=== PATIENT | female | born 1985 | race Caucasian/White ===

== ENCOUNTER 2023-09-15 08:19 | Inpatient (IN) | payer BC ==
[~2023-09-15] VITALS: Ht 167.6 cm; Wt 90.0 kg
[~2023-09-15 08:19] MED LIST: CITA20TA28 PO; HYDR25TA5 PO; LISI20TA28 PO; PRAV20TA4 PO
[2023-09-15 09:06] LABS: BASOPHILS % (AUTO) 0.5 % (0-1); EOSINOPHILS # (AUTO) 0.1 X10'3 (0-0.9); EOSINOPHILS % (AUTO) 0.8 % (0-6); HEMOGLOBIN 12.4 g/dl (12.0-16.0); LYMPHOCYTES # (AUTO) 1.2 X10'3 (1.1-4.8); LYMPHOCYTES % (AUTO) 18.3 % (21-51); MEAN CORPUSCULAR HEMOGLOBIN 22.2 PG (27.0-31.0); MEAN CORPUSCULAR HGB CONC 31.7 g/dL (33.0-36.5); MEAN CORPUSCULAR VOLUME 70.1 FL (78-98); MEAN PLATELET VOLUME 8.1 FL (7.4-10.4); MONOCYTES # (AUTO) 0.6 X10'3 (0-0.9); MONOCYTES % (AUTO) 9.4 % (2-12); NEUTROPHILS # (AUTO) 4.8 X10'3 (1.8-7.7); PLATELET COUNT 390 X10'3 (140-440); RED BLOOD COUNT 5.56 X10'6 (4.20-5.60); RED CELL DISTRIBUTION WIDTH 18.7 % (11.5-14.5); WHITE BLOOD COUNT 6.8 X10'3 (4.5-11.0)
[2023-09-15 09:21] LABS: ALBUMIN 3.9 G/DL (3.4-5.0); ANION GAP 12 (8-16); BLOOD UREA NITROGEN 12 MG/DL (7-18); BUN/CREATININE RATIO 21.1 (10.0-20.0); CALCIUM 9.2 MG/DL (8.5-10.1); CHLORIDE 100 MMOL/L (99-107); CREATININE 0.57 MG/DL (0.40-0.90); GLUCOSE 120 MG/DL (70-104); POTASSIUM 3.7 MMOL/L (3.5-5.1); PRO BRAIN NATRIURETIC PEPTIDE < 30 PG/ML (0-125); SODIUM 135 MMOL/L (135-145); TOTAL CARBON DIOXIDE 23.5 MMOL/L (24-32); eCRCL 127 ML/MIN; eGFR > 90 ML/MIN
[2023-09-15] MEDS ORDERED: aspirin 325mg tablet PO ONE (12:30)
[2023-09-15] MEDS ORDERED: magnesium Cl slow-release 64mg tablet PO PRN (12:50)
[2023-09-15] MEDS ORDERED: magnesium 4gm in 100ml NS 100 ML IV PRN (12:50)
[2023-09-15] MEDS ORDERED: HYDROcodone/acetaminophen 5mg/325mg tablet PO PRN (12:50)
[2023-09-15] MEDS ORDERED: acetaminophen 325mg tablet PO PRN ×2 (12:50)
[2023-09-15] MEDS ORDERED: potassium Cl 20 mEq SR tablet PO PRN ×2 (12:50)
[2023-09-15] MEDS ORDERED: mag hydrox/Alum hydrox/simeth 30ml oral suspension PO PRN (12:50)
[2023-09-15] MEDS ORDERED: magnesium 2GM in 50ml NS 50 ML IV PRN (12:50)
[2023-09-15] MEDS ORDERED: HYDROcodone/acetaminophen 10/325mg tab PO PRN (12:50)
[2023-09-15] MEDS ORDERED: morphine 2 MG/ML inj. syringe IV PRN ×2 (12:50)
[2023-09-15] MEDS ORDERED: potassium Cl 40MEQ/1/2NS 520ml 520 ML IV PRN (12:50)
[2023-09-15] MEDS ORDERED: ondansetron/PF 4mg/2ml inj IV PRN (12:50)
[2023-09-15] MEDS ORDERED: magnesium hydroxide 30ml (MOM) UD suspension PO PRN (12:50)
[2023-09-15] MEDS ORDERED: iohexol 350MG/ML 100ml bottle IV ONE (13:16)
[2023-09-15 14:17] LABS: BILIRUBIN,URINE NEGATIVE (Neg); CLARITY,URINE CLOUDY (Clear); COLOR,URINE YELLOW (Yellow); GLUCOSE, URINE NEGATIVE (Neg); KETONES,URINE 15 mg/dl (Neg); LEUKOCYTE ESTERASE ,URINE TRACE (Neg); NITRITES, URINE NEGATIVE (Neg); OCCULT BLOOD,URINE LARGE (Neg); PROTEIN,URINE NEGATIVE (Neg); UROBILINOGEN,URINE 0.2 E.U/dL (0.2-1.0)
[2023-09-15 14:18] LABS: UA COLLECTION TYPE CLN CATCH MIDSTREAM
[2023-09-15 14:28] LABS: BACTERIA,URINE FEW /HPF (Neg); MUCUS STRANDS NONE SEEN /LPF (Neg); SQUAMOUS EPITHELIAL CELL,UR MODERATE /LPF (FEW)
[2023-09-15 14:53] LABS: URINE AMPHETAMINE SCREEN NEGATIVE (Neg); URINE BARBITUATE SCREEN NEGATIVE (Neg); URINE BENZODIAZEPINES SCREEN NEGATIVE (Neg); URINE CANNABINOID SCREEN NEGATIVE (Neg); URINE COCAINE SCREEN NEGATIVE (Neg); URINE METHADONE SCREEN NEGATIVE (Neg); URINE OPIATE SCREEN NEGATIVE (Neg); URINE PHENCYCLIDINE SCREEN NEGATIVE (Neg)
[2023-09-15] MEDS: citalopram 20mg tablet PO SCH (14:55)
[2023-09-15] MEDS: lisinopril 20mg tablet PO SCH (14:55)
[2023-09-15] MEDS: HYDROchlorothiazide 12.5mg capsule PO SCH (14:55)
[2023-09-15 15:08] LABS: URINE HCG NEGATIVE (NEG)
[2023-09-15 15:30] VITALS: BP 137/87; PULSE 94; RESP 16; TEMP 97.7; O2SAT 97
[2023-09-15 18:00] VITALS: BP 124/45; PULSE 91; RESP 19; TEMP 97; O2SAT 97
[2023-09-15 19:00] VITALS: RESP 18; O2SAT 97
[2023-09-15] MEDS: K and/or MAG REPLACEMENT MC SCH (20:00)
[2023-09-15] MEDS: docusate sod 100mg capsule PO SCH (20:01)
[2023-09-15] MEDS ORDERED: atorvastatin 10mg tablet PO SCH (21:00)
[2023-09-15 22:00] VITALS: BP 131/85; PULSE 80; RESP 22; TEMP 97.4; O2SAT 98
[2023-09-16 02:00] VITALS: BP 122/70; PULSE 71; RESP 11; TEMP 97.6; O2SAT 99
[2023-09-16 07:11] LABS: BASOPHILS % (AUTO) 0.7 % (0-1); EOSINOPHILS # (AUTO) 0.1 X10'3 (0-0.9); HEMATOCRIT 38.6 % (35.0-45.0); HEMOGLOBIN 12.3 g/dl (12.0-16.0); LYMPHOCYTES # (AUTO) 1.8 X10'3 (1.1-4.8); LYMPHOCYTES % (AUTO) 27.7 % (21-51); MEAN CORPUSCULAR HEMOGLOBIN 22.4 PG (27.0-31.0); MEAN CORPUSCULAR HGB CONC 31.9 g/dL (33.0-36.5); MEAN CORPUSCULAR VOLUME 70.1 FL (78-98); MEAN PLATELET VOLUME 8.5 FL (7.4-10.4); MONOCYTES # (AUTO) 0.8 X10'3 (0-0.9); MONOCYTES % (AUTO) 12.4 % (2-12); NEUTROPHILS # (AUTO) 3.9 X10'3 (1.8-7.7); NEUTROPHILS % (AUTO) 58.2 % (42-75); PLATELET COUNT 401 X10'3 (140-440); RED BLOOD COUNT 5.51 X10'6 (4.20-5.60); RED CELL DISTRIBUTION WIDTH 19.1 % (11.5-14.5); WHITE BLOOD COUNT 6.7 X10'3 (4.5-11.0)
[2023-09-16 07:15] LABS: APTT 28 SECONDS (22-32)
[2023-09-16] MEDS ORDERED: enoxaparin 40mg/0.4ml syringe SUBCUT SCH (08:00)
[2023-09-16] MEDS ORDERED: atorvastatin 10mg tablet PO SCH (08:00)
[2023-09-16] MEDS: K and/or MAG REPLACEMENT MC SCH (08:00)
[2023-09-16 08:15] LABS: ALANINE AMINOTRANSFERASE 18 U/L (12-78); ALBUMIN 3.5 G/DL (3.4-5.0); ALBUMIN/GLOBULIN RATIO 0.8 (1.1-1.5); ALKALINE PHOSPHATASE 48 IU/L (46-116); ANION GAP 13 (8-16); ASPARTATE AMINO TRANSFERASE 14 U/L (10-37); BILIRUBIN,TOTAL 0.4 MG/DL (0.1-1.0); BLOOD UREA NITROGEN 11 MG/DL (7-18); CHLORIDE 102 MMOL/L (99-107); CREATININE 0.61 MG/DL (0.40-0.90); GLUCOSE 101 MG/DL (70-104); MAGNESIUM 1.8 MG/DL (1.5-2.4); PHOSPHORUS 4.6 MG/DL (2.3-4.5); POTASSIUM 3.7 MMOL/L (3.5-5.1); SODIUM 140 MMOL/L (135-145); TOTAL PROTEIN 7.9 G/DL (6.4-8.2); eCRCL 118 ML/MIN; eGFR > 90 ML/MIN
[2023-09-16] MEDS: docusate sod 100mg capsule PO SCH (08:26)
[2023-09-16] MEDS: HYDROchlorothiazide 12.5mg capsule PO SCH (08:27)
[2023-09-16] MEDS: lisinopril 20mg tablet PO SCH (08:27)
[2023-09-16] MEDS: citalopram 20mg tablet PO SCH (08:27)
[2023-09-16 08:30] LABS: ANISOCYTOSIS 2+; MICROCYTOSIS 1+; PLATELET ESTIMATE NORMAL
[2023-09-16 11:00] VITALS: BP 129/86; PULSE 91; RESP 14; TEMP 97.5; O2SAT 99
== END 2023-09-16 17:30 | disposition home or self-care (01) | DRG 313 ==
LOC: ER 08:20 → ED HOLD 12:50 → PCU 3S 15:18
PROVIDERS: ADMIT Internal Medicine; ATTEND Internal Medicine
DX: R07.89 Other chest pain (principal); I10 Essential (primary) hypertension; E78.00 Pure hypercholesterolemia, unspecified; R79.89 Other specified abnormal findings of blood chemistry; F41.9 Anxiety disorder, unspecified; E66.9 Obesity, unspecified; D36.7 Benign neoplasm of other specified sites; Z79.899 Other long term (current) drug therapy; Z68.32 Body mass index [BMI] 32.0-32.9, adult
CPT/HCPCS: 36415; 71045; 74178; 80048; 80053; 80305; 81001; 81025; 82088; 83735; 83835; 83880; 84100; 84244; 84484; 85008; 85025; 85610; 85730; 87081; 93005; 99285; G0378; J1650; J3490; Q9967

== ENCOUNTER 2024-05-23 13:53 | Emergency (ER) | payer BC ==
[~2024-05-23] VITALS: Ht 167.6 cm; Wt 94.5 kg
[2024-05-23 14:29] LABS: BASOPHILS % (AUTO) 0.3 % (0-1); EOSINOPHILS # (AUTO) 0.1 X10'3 (0-0.9); EOSINOPHILS % (AUTO) 0.6 % (0-6); HEMATOCRIT 39.1 % (35.0-45.0); HEMOGLOBIN 12.7 g/dl (12.0-16.0); LYMPHOCYTES # (AUTO) 1.8 X10'3 (1.1-4.8); LYMPHOCYTES % (AUTO) 14.3 % (21-51); MEAN CORPUSCULAR HEMOGLOBIN 26.7 PG (27.0-31.0); MEAN CORPUSCULAR HGB CONC 32.4 g/dL (33.0-36.5); MEAN CORPUSCULAR VOLUME 82.5 FL (78-98); MEAN PLATELET VOLUME 8.5 FL (7.4-10.4); MONOCYTES # (AUTO) 0.9 X10'3 (0-0.9); MONOCYTES % (AUTO) 7.3 % (2-12); NEUTROPHILS # (AUTO) 9.9 X10'3 (1.8-7.7); NEUTROPHILS % (AUTO) 77.5 % (42-75); PLATELET COUNT 396 X10'3 (140-440); RED BLOOD COUNT 4.74 X10'6 (4.20-5.60); RED CELL DISTRIBUTION WIDTH 15.9 % (11.5-14.5); WHITE BLOOD COUNT 12.7 X10'3 (4.5-11.0)
[2024-05-23 14:35] LABS: ALBUMIN 3.7 G/DL (3.4-5.0); ANION GAP 11 (8-16); BLOOD UREA NITROGEN 12 MG/DL (7-18); BUN/CREATININE RATIO 21.8 (10.0-20.0); CALCIUM 9.1 MG/DL (8.5-10.1); CHLORIDE 103 MMOL/L (99-107); CREATININE 0.55 MG/DL (0.40-0.90); GLUCOSE 95 MG/DL (70-104); POTASSIUM 3.9 MMOL/L (3.5-5.1); SODIUM 136 MMOL/L (135-145); eCRCL 130 ML/MIN; eGFR > 90 ML/MIN
[2024-05-23 14:42] LABS: APTT 26 SECONDS (22-32); PROTHROMBIN TIME 10.2 SECONDS (9.0-12.0)
[2024-05-23] MEDS: diphenhydrAMINE 50 mg/ml inj IV ONE (14:45)
[2024-05-23] MEDS: normal saline 1000ml 1,000 ML IV ONE (14:45)
[2024-05-23] MEDS: proCHLORperazine 10 MG/2 ml inj IV ONE (14:46)
[2024-05-23 15:40] LABS: HCG SERUM QL NEGATIVE
[2024-05-23] MEDS ORDERED: iohexol 350MG/ML 100ml bottle IV ONE (16:51)
[2024-05-23] MEDS ORDERED: magnesium sulf-water 2g/50mL 50 ML IV PRN (18:00)
[2024-05-23] MEDS ORDERED: potassium Cl 20 mEq SR tablet PO PRN (18:00)
[2024-05-23] MEDS ORDERED: magnesium hydroxide 30ml (MOM) UD suspension PO PRN (18:00)
[2024-05-23] MEDS ORDERED: magnesium Cl slow-release 64mg tablet PO PRN (18:00)
[2024-05-23] MEDS ORDERED: ondansetron/PF 4mg/2ml inj IV PRN (18:00)
[2024-05-23] MEDS ORDERED: mag hydrox/Alum hydrox/simeth 30ml oral suspension PO PRN (18:00)
[2024-05-23] MEDS ORDERED: acetaminophen 325mg tablet PO PRN ×2 (18:00)
[2024-05-23 18:19] VITALS: BP 170/97; PULSE 95; RESP 19; TEMP 98.5; O2SAT 98
[2024-05-23 18:24] LABS: HEMOGLOBIN A1C 5.6 % (4.5-6.2)
[2024-05-23] MEDS ORDERED: docusate sod 100mg capsule PO SCH (20:00)
[2024-05-23] MEDS ORDERED: heparin, porcine 5000 units/ml vial SQ SCH (20:00)
== END 2024-05-23 18:27 | disposition home or self-care (01) ==
LOC: ER 13:53
DX: I63.9 Cerebral infarction, unspecified (principal); G43.909 Migraine, unspecified, not intractable, without status migrainosus; I11.9 Hypertensive heart disease without heart failure; Z88.8 Allergy status to other drugs, medicaments and biological substances
CPT/HCPCS: 36415; 70450; 70496; 70498; 71045; 80048; 82948; 83036; 84703; 85025; 85610; 85730; 93005; 96361; 96374; 96375; 99285; J0780; J1200; J7030; Q9967